=== PATIENT | male | born 1950 | race Caucasian/White ===

== ENCOUNTER → 2018-01-04 | Outpatient (CLI) | payer MEDICARE | LOC: M.RAD 08:42 | DX: R10.9 Unspecified abdominal pain (principal); Z87.891 Personal history of nicotine dependence ==

== ENCOUNTER → 2021-02-10 | Outpatient (CLI) | payer MEDICARE | LOC: M.RAD 11:18 | PROVIDERS: ATTEND Internal Medicine Gastroenterology | DX: M25.78 Osteophyte, vertebrae (principal); M41.86 Other forms of scoliosis, lumbar region; Z86.010 Personal history of colon polyps ==